=== PATIENT | female | born 1995 | race American Indian/Alaskan Native ===

== ENCOUNTER 2019-02-27 13:05 | Emergency (ER) | payer OTHER ==
[2019-02-27] MEDS ORDERED: NACL 0.9% IR ONE (13:23)
[2019-02-27] MEDS ORDERED: IBUPROFEN PO ONE (13:23)
[2019-02-27] MEDS ORDERED: XYLOCAINE 1% 20 mL INFILTRATI ONE (13:23)
[2019-02-27] MEDS ORDERED: TRIPLE ANTIBIOTIC TP ONE ×2 (13:23→16:53)
--- NOTE | 2019-02-27 13:24 | Event Note ---
ED Screening Note ED Screening Note: lac lle bleeding controlled utd tet This initial assessment/diagnostic orders/clinical plan/treatment(s) is/are subject to change based on patients health status, clinical progression and re- assessment by fellow clinical providers in the ED. Further treatment and workup at subsequent clinical providers discretion. Patient/guardian urged not to elope from the ED as their condition may be serious if not clinically assessed and managed. Initial orders include:
[2019-02-27] MEDS ORDERED: XYLOCAINE 1% MPF 5 mL ONE (16:25)
--- NOTE | 2019-02-27 16:59 | Emergency Department Report ---
- General Chief Complaint: Wound/Laceration Stated Complaint: LAC TO LEG Time Seen by Provider: 02/27/19 13:23 Source: patient Mode of arrival: Ambulatory Limitations: No Limitations - History of Present Illness Initial Comments: Patient is a 23-year-old Female who suffered a laceration earlier this morning. Patient states she was walking around the edge of her bed frame and cut her leg on a piece of metal. Patient states that the pain is 6 out of 10 in severity and throbbing. Patient was able to wrap her leg and try to control the bleeding. - Related Data Previous Rx's Medication Instructions Recorded Last Taken Type Clindamycin [Clindamycin CAP] 300 mg PO Q8H #15 cap 02/27/19 Unknown Rx Ibuprofen [Motrin 600 MG tab] 600 mg PO Q8H PRN #20 tablet 02/27/19 Unknown Rx traMADol [Ultram] 50 mg PO Q6HR PRN #12 tablet 02/27/19 Unknown Rx Allergies Allergy/AdvReac Type Severity Reaction Status Date / Time No Known Allergies Allergy Unverified 02/27/19 13:08 ED Review of Systems ROS: Stated complaint: LAC TO LEG Other details as noted in HPI Constitutional: denies: chills, fever Eyes: denies: eye pain, eye discharge, vision change ENT: denies: ear pain, throat pain Respiratory: denies: cough, shortness of breath, wheezing Cardiovascular: denies: chest pain, palpitations Endocrine: no symptoms reported Gastrointestinal: denies: abdominal pain, nausea, diarrhea Genitourinary: denies: urgency, dysuria, discharge Musculoskeletal: denies: back pain, joint swelling, arthralgia Skin: denies: rash, lesions Neurological: denies: headache, weakness, paresthesias Psychiatric: denies: anxiety, depression Hematological/Lymphatic: denies: easy bleeding, easy bruising ED Past Medical Hx - Past Medical History Previous Medical History?: No - Surgical History Past Surgical History?: No - Medications Home Medications: Home Medications Medication Instructions Recorded Confirmed Last Taken Type Clindamycin [Clindamycin CAP] 300 mg PO Q8H #15 cap 02/27/19 Unknown Rx Ibuprofen [Motrin 600 MG tab] 600 mg PO Q8H PRN #20 tablet 02/27/19 Unknown Rx traMADol [Ultram] 50 mg PO Q6HR PRN #12 tablet 02/27/19 Unknown Rx ED Physical Exam - General Limitations: No Limitations General appearance: alert, in no apparent distress - Head Head exam: Present: atraumatic - Eye Eye exam: Present: normal appearance, PERRL, EOMI - ENT ENT exam: Present: normal exam, normal orophraynx - Respiratory Respiratory exam: Absent: respiratory distress - Skin Skin exam: Present: warm, dry, normal color. Absent: intact (patient with a 5 cm laceration in the shape of the check tc. Wound is wide secondary to the periosteum being compromised. This is directly over the left tibia) - Laceration /Wound Repair Left Anterior Leg Wound Length (cm): 5 Wound's Depth, Shape: into muscle Wound Explored: clean Irrigated w/ Saline (ccs): 250 Betadine Prep?: Yes Anesthesia: 1% Lidocaine Volume Anesthetic (ccs): 10 Wound Repaired With: sutures Suture Size/Type: 3:0, nylon Number of Sutures: 12 Layer Closure?: Yes Deep Layer Suture Size/Type: 4:0 Number Deep Layer Sutures: 5 (periosteum and closed to the best of my ability. Periosteum was torn in several places toward the middle of the wound) Sterile Dressing Applied?: Yes Critical care attestation.: If time is entered above; I have spent that time in minutes in the direct care of this critically ill patient, excluding procedure time. ED Disposition Clinical Impression: Laceration Disposition: DC-01 TO HOME OR SELFCARE Is pt being admited?: No Does the pt Need Aspirin: No Condition: Stable Instructions: Suture Care (ED), Laceration (ED) Referrals: AMBER HERNANDEZ MD [Primary Care Provider] - 7-10 days (for suture removal ) Time of Disposition: 17:03
[2019-02-27 17:08] VITALS: BP 107/72
== END 2019-02-27 17:08 | disposition home or self-care (01) ==
LOC: ED 13:05
DX: S81.812A Laceration without foreign body, left lower leg, initial encounter (principal); X58.XXXA Exposure to other specified factors, initial encounter; Y93.9 Activity, unspecified; Y92.89 Other specified places as the place of occurrence of the external cause; Y99.8 Other external cause status
CPT/HCPCS: 99282; A6250